=== PATIENT | male | born 1950 | race Caucasian/White ===

== ENCOUNTER 2018-04-15 09:41 | Day surgery (SDC) | payer MEDICARE ==
[~2018-04-15] VITALS: Ht 167.6 cm; Wt 57.3 kg
[2018-04-15] MEDS ORDERED: ASPI325 (10:44)
[2018-04-15] MEDS ORDERED: AMLO10 (10:44)
[2018-04-15] MEDS ORDERED: ATOR40TA (10:45)
[2018-04-15] MEDS ORDERED: ATEN25 (10:45)
[2018-04-15] MEDS ORDERED: CILO100 (10:46)
[2018-04-15] MEDS ORDERED: BREO ELLIPTA 21 EACH (10:46)
[2018-04-15] MEDS ORDERED: MELA3 (10:48)
[2018-04-15] MEDS ORDERED: ALBU90OI6 (10:48)
[2018-04-15] MEDS ORDERED: MULTI VITAMIN1 EACH (10:49)
--- NOTE | 2018-04-15 14:31 | NUR ---
04/15/[address] USED 4 CLIPS ON POLYP.
== END 2018-04-15 13:15 | disposition home or self-care (01) ==
LOC: ORSCSDS 09:41
PROVIDERS: Internal Medicine Gastroenterology
PROC: 0W3P8ZZ Control Bleeding in Gastrointestinal Tract, Via Natural or Artificial Opening Endoscopic (ICD-10-PCS; principal; 2018-04-15 11:15)
PROC: 0DBL8ZX Excision of Transverse Colon, Via Natural or Artificial Opening Endoscopic, Diagnostic (ICD-10-PCS; principal; 2018-04-15 11:15)
PROC: 0DBN8ZX Excision of Sigmoid Colon, Via Natural or Artificial Opening Endoscopic, Diagnostic (ICD-10-PCS; principal; 2018-04-15 11:15)
PROC: 0DBC8ZX Excision of Ileocecal Valve, Via Natural or Artificial Opening Endoscopic, Diagnostic (ICD-10-PCS; principal; 2018-04-15 11:15)
PROC: 0DBP8ZX Excision of Rectum, Via Natural or Artificial Opening Endoscopic, Diagnostic (ICD-10-PCS; principal; 2018-04-15 11:15)
PROC: 0DBM8ZX Excision of Descending Colon, Via Natural or Artificial Opening Endoscopic, Diagnostic (ICD-10-PCS; principal; 2018-04-15 11:15)
DX: K62.5 Hemorrhage of anus and rectum (principal); R19.7 Diarrhea, unspecified; Z86.010 Personal history of colon polyps; D12.0 Benign neoplasm of cecum; D12.2 Benign neoplasm of ascending colon; K63.5 Polyp of colon; K62.1 Rectal polyp; K62.7 Radiation proctitis; K57.30 Diverticulosis of large intestine without perforation or abscess without bleeding; K64.8 Other hemorrhoids; I10 Essential (primary) hypertension; E78.5 Hyperlipidemia, unspecified; I77.9 Disorder of arteries and arterioles, unspecified; I65.23 Occlusion and stenosis of bilateral carotid arteries; Z79.899 Other long term (current) drug therapy; Z79.82 Long term (current) use of aspirin
CPT/HCPCS: 88305; J1980; J7120

== ENCOUNTER 2020-03-10 10:09 | Day surgery (SDC) | payer MEDICARE ==
[~2020-03-10] VITALS: Ht 167.6 cm; Wt 56.8 kg
[~2020-03-10 10:09] MED LIST: ALBU90OI INH; ALBU90OI6; AMLO10; AMLO5 PO; ASPI325; ASPI325EC PO; ATEN25; ATEN25 PO; ATOR40TA; BREO ELLIPTA 21 EAC1 INH; BREO ELLIPTA 21 EACH; CILO100; CILO100 PO; Crestor40 MG PO; EZET10 PO; MELA3; MELA3 PO; MULTI VITAMIN1 EACH; SPIRIVA RESPIMAT4 G3 INH
== END 2020-03-10 12:49 | disposition home or self-care (01) ==
LOC: ORSCSDS 10:09
DX: R19.7 Diarrhea, unspecified (principal); Z86.010 Personal history of colon polyps; D12.0 Benign neoplasm of cecum; D12.2 Benign neoplasm of ascending colon; D12.3 Benign neoplasm of transverse colon; D12.4 Benign neoplasm of descending colon; K63.5 Polyp of colon; K57.30 Diverticulosis of large intestine without perforation or abscess without bleeding; K64.8 Other hemorrhoids; K64.4 Residual hemorrhoidal skin tags; I10 Essential (primary) hypertension; I25.10 Atherosclerotic heart disease of native coronary artery without angina pectoris; J44.9 Chronic obstructive pulmonary disease, unspecified; Z87.891 Personal history of nicotine dependence; Z79.82 Long term (current) use of aspirin; Z79.899 Other long term (current) drug therapy
CPT/HCPCS: 88305; J2704; J7120

== ENCOUNTER → 2020-04-14 | Outpatient (CLI) | payer MEDICARE ==
[~2020-04-14] MED LIST changes: +PRED20 PO; +Ventolin5 MG/1 ML INH
[2020-04-14 15:38] LABS: BASOPHILS ABSOLUTE AUTO 0.07 K/mm3 (0.00-0.23); BASOPHILS PERCENT AUTO 1 % (0-2); EOSINOPHILS ABSOLUTE AUTO 0.12 K/mm3 (0.00-0.68); EOSINOPHILS PERCENT AUTO 2 % (0-6); Hematocrit 52.4 % (37.0-53.0); Hemoglobin 18.5 g/dL (13.5-17.5); IMMATURE GRAN ABSOLUTE AUTO 0.05 K/mm3 (0.00-0.10); IMMATURE GRAN PERCENT AUTO 1 % (0-1); LYMPHOCYTES ABSOLUTE AUTO 2.73 K/mm3 (0.84-5.20); LYMPHOCYTES PERCENT AUTO 37 % (21-46); MONOCYTES ABSOLUTE AUTO 0.89 K/mm3 (0.16-1.47); MONOCYTES PERCENT AUTO 12 % (4-13); Mean Corpuscular HGB 32.9 pg (26.0-34.0); Mean Corpuscular HGB Conc 35.3 g/dL (31.5-36.5); Mean Corpuscular Volume 93 fL (80-100); Mean Platelet Volume 9.9 fL (9.1-12.4); NEUTROPHILS ABSOLUTE AUTO 3.44 K/mm3 (1.96-9.15); NEUTROPHILS PERCENT AUTO 47 % (41-73); Platelet Count 242 K/mm3 (150-400); RDW Coefficient Variation 13.1 % (11.7-14.2); RETICULOCYTE ABSOLUTE 0.1002 M/mm3 (0.0200-0.1100); RETICULOCYTE COUNT PERCENT 1.78 % (0.50-2.50); Red Blood Cell Count 5.63 M/mm3 (4.30-5.90)
[2020-04-14 15:57] LABS: Alanine Aminotransfer (ALT/SGP 53 U/L (12-78); Albumin, Blood 3.7 g/dL (3.4-5.0); Alk Phos 133 U/L (50-136); Anion Gap 7 mmol/L (6-16); Aspartate Aminotrans (AST/SGOT 36 U/L (12-37); Bilirubin, Total 0.5 mg/dL (0.1-1.0); Blood Urea Nitrogen 12 mg/dL (8-24); Bun/Creatinine Ratio 16.9 (12.0-20.0); CO2, Blood 30 mmol/L (21-32); Calcium, Blood 8.9 mg/dL (8.5-10.1); Chloride, Blood 100 mmol/L (98-108); Creatinine, Blood 0.71 mg/dL (0.60-1.20); Globulin, Blood 3.8 g/dL (2.2-4.0); Glomerular Filtration Rate >60 (60-); Glucose, Blood 122 mg/dL (70-99); Potassium, Blood 3.3 mmol/L (3.5-5.5); Sodium, Blood 137 mmol/L (136-145); Total Protein, Blood 7.5 g/dL (6.4-8.2)
== END | disposition home or self-care (01) ==
LOC: LAB SHORT 15:26 → LAB 15:26
PROVIDERS: Internal Medicine Hematology & Oncology
DX: D45 Polycythemia vera (principal)
CPT/HCPCS: 80053; 82668; 85025; 85045

== ENCOUNTER → 2020-04-28 | Outpatient (CLI) | payer MEDICARE | END | disposition home or self-care (01) | LOC: LAB SHORT 15:04 → LAB 15:04 | PROVIDERS: Internal Medicine Hematology & Oncology | DX: D45 Polycythemia vera (principal) | CPT/HCPCS: 81270 ==

== ENCOUNTER 2020-08-05 10:43 | Emergency (ER) | payer MEDICARE ==
[~2020-08-05] VITALS: Ht 167.6 cm; Wt 57.1 kg
[~2020-08-05 10:43] MED LIST changes: -PRED20 PO; -Ventolin5 MG/1 ML INH
[2020-08-05 11:20] LABS: BASOPHILS ABSOLUTE AUTO 0.06 K/mm3 (0.00-0.23); BASOPHILS PERCENT AUTO 1 % (0-2); EOSINOPHILS ABSOLUTE AUTO 0.12 K/mm3 (0.00-0.68); EOSINOPHILS PERCENT AUTO 2 % (0-6); Hematocrit 47.3 % (37.0-53.0); IMMATURE GRAN ABSOLUTE AUTO 0.04 K/mm3 (0.00-0.10); IMMATURE GRAN PERCENT AUTO 1 % (0-1); LYMPHOCYTES ABSOLUTE AUTO 2.28 K/mm3 (0.84-5.20); LYMPHOCYTES PERCENT AUTO 37 % (21-46); MONOCYTES ABSOLUTE AUTO 0.69 K/mm3 (0.16-1.47); MONOCYTES PERCENT AUTO 11 % (4-13); Mean Corpuscular HGB 28.5 pg (26.0-34.0); Mean Corpuscular HGB Conc 33.8 g/dL (31.5-36.5); Mean Corpuscular Volume 84 fL (80-100); Mean Platelet Volume 9.9 fL (9.1-12.4); NEUTROPHILS PERCENT AUTO 49 % (41-73); Platelet Count 272 K/mm3 (150-400); RDW Coefficient Variation 14.6 % (11.7-14.2); RDW Standard Deviation 45.1 fL (35.1-46.3); Red Blood Cell Count 5.61 M/mm3 (4.30-5.90); White Blood Cell Count 6.19 K/mm3 (4.00-11.30)
[2020-08-05 11:31] LABS: Alanine Aminotransfer (ALT/SGP 51 U/L (12-78); Albumin, Blood 3.9 g/dL (3.4-5.0); Alk Phos 140 U/L (50-136); Anion Gap 6 mmol/L (6-16); Aspartate Aminotrans (AST/SGOT 41 U/L (12-37); Bilirubin, Total 0.4 mg/dL (0.1-1.0); Blood Urea Nitrogen 12 mg/dL (8-24); CO2, Blood 29 mmol/L (21-32); Calcium, Blood 8.6 mg/dL (8.5-10.1); Chloride, Blood 101 mmol/L (98-108); Globulin, Blood 3.9 g/dL (2.2-4.0); Glomerular Filtration Rate >60 (60-); Glucose, Blood 189 mg/dL (70-99); Potassium, Blood 3.6 mmol/L (3.5-5.5); Sodium, Blood 136 mmol/L (136-145); Total Protein, Blood 7.8 g/dL (6.4-8.2)
[2020-08-05] MEDS ORDERED: PRED20 PO (13:15)
[2020-08-05] MEDS ORDERED: Ventolin5 MG/1 ML INH (13:16)
== END 2020-08-05 13:53 | disposition home or self-care (01) ==
LOC: ER 10:43
PROVIDERS: Emergency Medicine
DX: J44.1 Chronic obstructive pulmonary disease with (acute) exacerbation (principal); K65.9 Peritonitis, unspecified; I10 Essential (primary) hypertension; I25.2 Old myocardial infarction; Z88.8 Allergy status to other drugs, medicaments and biological substances; Z88.5 Allergy status to narcotic agent; Z79.899 Other long term (current) drug therapy
CPT/HCPCS: 36415; 71046; 80053; 85025; 93005; 93010; 94640; 99285-25; J7512

== ENCOUNTER 2023-02-01 14:24 | Observation (INO) | payer MEDICARE ==
[~2023-02-01] VITALS: Ht 167.6 cm; Wt 57.6 kg
[~2023-02-01 14:24] MED LIST changes: +PRED20 PO; +Ventolin5 MG/1 ML INH
[2023-02-01] MEDS ORDERED: ATEN50 PO (14:56)
[2023-02-01 15:06] LABS: BASOPHILS ABSOLUTE AUTO 0.05 K/mm3 (0.00-0.23); BASOPHILS PERCENT AUTO 1 % (0-2); EOSINOPHILS ABSOLUTE AUTO 0.16 K/mm3 (0.00-0.68); EOSINOPHILS PERCENT AUTO 2 % (0-6); Hematocrit 40.8 % (37.0-53.0); Hemoglobin 14.4 g/dL (13.5-17.5); IMMATURE GRAN ABSOLUTE AUTO 0.04 K/mm3 (0.00-0.10); IMMATURE GRAN PERCENT AUTO 1 % (0-1); LYMPHOCYTES ABSOLUTE AUTO 3.25 K/mm3 (0.84-5.20); LYMPHOCYTES PERCENT AUTO 42 % (21-46); MONOCYTES ABSOLUTE AUTO 0.85 K/mm3 (0.16-1.47); MONOCYTES PERCENT AUTO 11 % (4-13); Mean Corpuscular HGB 32.2 pg (26.0-34.0); Mean Corpuscular HGB Conc 35.3 g/dL (31.5-36.5); Mean Corpuscular Volume 91 fL (80-100); Mean Platelet Volume 10.3 fL (9.1-12.4); NEUTROPHILS ABSOLUTE AUTO 3.42 K/mm3 (1.96-9.15); NEUTROPHILS PERCENT AUTO 44 % (41-73); Platelet Count 216 K/mm3 (150-400); RDW Coefficient Variation 12.6 % (11.7-14.2); RDW Standard Deviation 41.7 fL (35.1-46.3); Red Blood Cell Count 4.47 M/mm3 (4.30-5.90); White Blood Cell Count 7.77 K/mm3 (4.00-11.30)
[2023-02-01 15:21] LABS: Albumin, Blood 3.6 g/dL (3.4-5.0); Albumin/Globulin Ratio 1.1 (0.8-1.8); Bilirubin, Total 0.5 mg/dL (0.1-1.0); Bun/Creatinine Ratio 18.2 (12.0-20.0); Calcium, Blood 8.3 mg/dL (8.5-10.1); Creatinine, Blood 0.82 mg/dL (0.60-1.20); Globulin, Blood 3.4 g/dL (2.2-4.0); Potassium, Blood 3.7 mmol/L (3.5-5.5)
[2023-02-01 16:03] LABS: Magnesium, Blood 2.2 mg/dL (1.6-2.4); Thyroid Stimulating Hormone 0.519 uIU/mL (0.360-4.800)
[2023-02-01 16:44] LABS: Source, Urine Clean Catch
[2023-02-01 17:31] LABS: Appearance, Urine Clear (Clear); Bilirubin, Urine Neg (Neg); Blood, Urine Neg (Neg); Color, Urine Yellow (P-Yellow); Glucose Qualitative, Urine Neg (Neg); Ketones, Urine Neg (Neg); Leukocyte Esterase, Urine Neg (Neg); Nitrite, Urine Neg (Neg); Protein, Urine Neg (Neg); Urobilinogen, Urine NORM (Normal)
[2023-02-01 18:33] LABS: Influenza A, PCR NEGATIVE (NEGATIVE); Influenza B, PCR NEGATIVE (NEGATIVE); Resp Syncytial Virus, PCR NEGATIVE (NEGATIVE); SARS-Cov-2 (COVID-19) PCR, MMC NEGATIVE (NEGATIVE)
[2023-02-01 22:49] VITALS: BP 190/85
[2023-02-01 23:55] VITALS: BP 174/97
[2023-02-02] VITALS (9 sets, daily range): BP systolic 98–197; BP diastolic 66–101
[2023-02-02 05:16] LABS: Hematocrit 45.2 % (37.0-53.0); Hemoglobin 16.1 g/dL (13.5-17.5); Mean Corpuscular HGB 32.1 pg (26.0-34.0); Mean Corpuscular HGB Conc 35.6 g/dL (31.5-36.5); Mean Corpuscular Volume 90 fL (80-100); Mean Platelet Volume 10.8 fL (9.1-12.4); Platelet Count 233 K/mm3 (150-400); RDW Coefficient Variation 12.6 % (11.7-14.2); RDW Standard Deviation 41.2 fL (35.1-46.3); Red Blood Cell Count 5.01 M/mm3 (4.30-5.90); White Blood Cell Count 9.42 K/mm3 (4.00-11.30)
[2023-02-02 05:42] LABS: Bun/Creatinine Ratio 14.1 (12.0-20.0); Calcium, Blood 8.4 mg/dL (8.5-10.1); Creatinine, Blood 0.64 mg/dL (0.60-1.20); Potassium, Blood 3.6 mmol/L (3.5-5.5)
--- NOTE | 2023-02-02 06:00 | NUR ---
SHIFT SUMMARY: ER ADMIT. NORMALLY INDEPENDENT. GLF FALL AT HOME ON CARPET. SMALL SKIN TEAR TO LEFT ELBOW. PIC TAKEN AND IN CHART. MEPILEX TO SKIN TEAR. PT HAD BECAME DIZZY A/O. COOPERATIVE WITH CARE. ON 4L. 3-4L BASELINE. SINUS RHYTHM ON TELE AT 86. IV LABATELOL 10 MG GIVEN FOR SBP OVER 190. NOW SBP 178. PT STATES HE'S FEELING SO MUCH BETTER THAN WHEN HE FIRST CAME IN. USED URINAL AT BEDSIDE. NO ACUTE CHANGES. WILL CONTINUE TO PROVIDE CARE UNTIL SHIFT REPORT.
[2023-02-03] VITALS (11 sets, daily range): BP systolic 113–199; BP diastolic 72–101
[2023-02-03 04:12] LABS: Base Excess Venous 2.1 mmol/L; Bicarbonate Venous 25.7 mmol/L (24.0-30.0); PCO2 Venous 39.9 mmHg (38-42); pH Blood Venous 7.43 (7.34-7.37)
[2023-02-03 04:38] LABS: BASOPHILS ABSOLUTE AUTO 0.06 K/mm3 (0.00-0.23); BASOPHILS PERCENT AUTO 1 % (0-2); EOSINOPHILS PERCENT AUTO 1 % (0-6); Hematocrit 45.7 % (37.0-53.0); IMMATURE GRAN ABSOLUTE AUTO 0.06 K/mm3 (0.00-0.10); IMMATURE GRAN PERCENT AUTO 1 % (0-1); LYMPHOCYTES ABSOLUTE AUTO 2.16 K/mm3 (0.84-5.20); LYMPHOCYTES PERCENT AUTO 26 % (21-46); MONOCYTES ABSOLUTE AUTO 1.02 K/mm3 (0.16-1.47); MONOCYTES PERCENT AUTO 13 % (4-13); Mean Corpuscular HGB 31.9 pg (26.0-34.0); Mean Corpuscular Volume 91 fL (80-100); Mean Platelet Volume 10.8 fL (9.1-12.4); NEUTROPHILS ABSOLUTE AUTO 4.79 K/mm3 (1.96-9.15); NEUTROPHILS PERCENT AUTO 59 % (41-73); Platelet Count 226 K/mm3 (150-400); RDW Coefficient Variation 12.8 % (11.7-14.2); RDW Standard Deviation 42.6 fL (35.1-46.3); Red Blood Cell Count 5.01 M/mm3 (4.30-5.90); White Blood Cell Count 8.19 K/mm3 (4.00-11.30)
[2023-02-03 04:59] LABS: Albumin, Blood 3.4 g/dL (3.4-5.0); Bilirubin, Total 0.7 mg/dL (0.1-1.0); Bun/Creatinine Ratio 15.8 (12.0-20.0); Calcium, Blood 8.4 mg/dL (8.5-10.1); Creatinine, Blood 0.7 mg/dL (0.60-1.20); Globulin, Blood 3.4 g/dL (2.2-4.0); Potassium, Blood 3.6 mmol/L (3.5-5.5); Total Protein, Blood 6.8 g/dL (6.4-8.2)
--- NOTE | 2023-02-03 06:13 | NUR ---
SHIFT SUMMARY PT PLEASANTLY CONFUSED. PT STS THAT HE IS GOING HOME TODAY NO MATTER WHAT. PT FORGETS HE IS IN THE HOSPITAL AT TIMES, ESPECIALLY AFTER HE HAS JUST WOKEN UP. PT HAS PULLED HIS CLOTHES AND TELE STICKERS OFF MANY TIMES THIS SHIFT. PT HAS CALL LIGHT WITHIN HIS REACH AND STS THAT HE KNOWS HOW TO USE IT. BED ALARM IS SET.
[2023-02-03 16:50] LABS: Source, Urine Clean Catch
--- NOTE | 2023-02-03 16:54 | NUR ---
PATIENT WITH INCREASING HALLUCINATIONS AND MIDDAY THINKING HE IS AT HOME AND NOT THE HOSPITAL, HE REORIENTS WELL BUT IS SEEING SNOW OUTSIDE, HIS CANE OUTSIDE THE [facility] ETC. DR YOUNG MADE AWARE. PATIEN ALSO BEGAN C/O BURNING WITH URINATION. CTA HEAD AND NECK ORDERED FOR ANGIOGRAM AND UA WITH REFLEX TO CULTURE COLLECTED. BP RAN HIGHER THIS AFTERNOON AND HYDRALAZINE GIVEN, WILL FOLLOW UP IN 15 MINUTES ON BLOOD PRESSURE. PATIENT REPORTS HE HAD SOME NAUSEA AND A LITTLE VOMIT DOWNSTAIRS DURING CTA BUT AFTER ZOFRAN PULLED FOR PATIENT, HE DECLINES IT STATING THE NAUSEA IS SUBSIDING QUICKLY. HE IS CURRENTLY ON 5LPM NC AT REST AND SATTING 92% OR HIGHER WHEN HIS OXYMETER IS READING CORRECTLY. BED IN LOW POSITION, BED ALARM ON PATIENT FORGETS LIMITATIONS AND ORIENTATION. CALL LIGHT IN REACH. WILL CONTINUE TO MONITOR.
[2023-02-03 17:04] LABS: Appearance, Urine Clear (Clear); Bilirubin, Urine Neg (Neg); Blood, Urine Neg (Neg); Glucose Qualitative, Urine Neg (Neg); Ketones, Urine 2+ (Neg); Leukocyte Esterase, Urine Neg (Neg); Nitrite, Urine Neg (Neg); Protein, Urine Neg (Neg); Urobilinogen, Urine NORM (Normal)
[2023-02-03 17:07] LABS: Color, Urine Pale Yellow (P-Yellow)
--- NOTE | 2023-02-03 19:03 | NUR ---
TOOK OVER ICE [facility]ARE 1630 UNTIL SHIFT CHANGE.
--- NOTE | 2023-02-04 02:45 | NUR ---
CALLED HOSPITALIST PATIENT IS AGITATED. HE IS FREQUENTLY REMOVING LINES AND TUBING, INCLUDING HIS OXYGEN. HE HAS REMOVED HIS CLOTHING AND IS HALLUCINATING. NEW MEDICATION ORDERS IN EMAR
--- NOTE | 2023-02-04 04:20 | NUR ---
SHIFT SUMMARY ADMITTED FOR [facility]. FULL CODE. CT ORDERED TODAY FOR CHEST, ABDOMEN, AND PELVIS. NEW LAB ORDERED. HE IS A&O X2, HALLUCINATES. HE PULLS AT LINES AND TUBES, OF WHICH THERE ARE MANY. BECAME AGITATED THIS SHIFT, SEE PREVIOUS NOTE. PRN ANXIETY MEDICATION GIVEN TO GOOD EFFECT. TELEMETRY: NSR @ 96 BPM. CAROTIDS FOUND TO HAVE OCCLUSIONS TO VARYING DEGREES, POSSIBLE ANGIOGRAM TOMORROW. CONTINUOUS PULSE OX IN PLACE ON EARLOBE. IV FLUIDS INFUSING ORDERED. HE IS ON A REGULAR DIET. 1-2 ASSIST TO BSC. JACKI HOSE IN PLACE.
[2023-02-04 05:02] LABS: BASOPHILS ABSOLUTE AUTO 0.05 K/mm3 (0.00-0.23); BASOPHILS PERCENT AUTO 1 % (0-2); EOSINOPHILS ABSOLUTE AUTO 0.06 K/mm3 (0.00-0.68); EOSINOPHILS PERCENT AUTO 1 % (0-6); Hematocrit 46.6 % (37.0-53.0); Hemoglobin 16.4 g/dL (13.5-17.5); IMMATURE GRAN ABSOLUTE AUTO 0.05 K/mm3 (0.00-0.10); IMMATURE GRAN PERCENT AUTO 1 % (0-1); LYMPHOCYTES ABSOLUTE AUTO 2.11 K/mm3 (0.84-5.20); LYMPHOCYTES PERCENT AUTO 24 % (21-46); MONOCYTES ABSOLUTE AUTO 0.98 K/mm3 (0.16-1.47); MONOCYTES PERCENT AUTO 11 % (4-13); Mean Corpuscular HGB 32.5 pg (26.0-34.0); Mean Corpuscular HGB Conc 35.2 g/dL (31.5-36.5); Mean Corpuscular Volume 92 fL (80-100); Mean Platelet Volume 10.7 fL (9.1-12.4); NEUTROPHILS ABSOLUTE AUTO 5.45 K/mm3 (1.96-9.15); NEUTROPHILS PERCENT AUTO 63 % (41-73); Platelet Count 205 K/mm3 (150-400); RDW Coefficient Variation 12.8 % (11.7-14.2); RDW Standard Deviation 42.9 fL (35.1-46.3); Red Blood Cell Count 5.05 M/mm3 (4.30-5.90)
[2023-02-04 05:31] VITALS: BP 188/83
[2023-02-04 05:43] LABS: Alanine Aminotransfer (ALT/SGP 32 U/L (12-78); Albumin, Blood 3.4 g/dL (3.4-5.0); Albumin/Globulin Ratio 0.9 (0.8-1.8); Alk Phos 99 U/L (50-136); Anion Gap 11 mmol/L (6-16); Aspartate Aminotrans (AST/SGOT 39 U/L (12-37); Bilirubin, Total 0.7 mg/dL (0.1-1.0); Blood Urea Nitrogen 11 mg/dL (8-24); Bun/Creatinine Ratio 19.4 (12.0-20.0); CO2, Blood 21 mmol/L (21-32); Chloride, Blood 99 mmol/L (98-108); Creatinine, Blood 0.57 mg/dL (0.60-1.20); Globulin, Blood 3.8 g/dL (2.2-4.0); Glomerular Filtration Rate 104 (60-); Glucose, Blood 80 mg/dL (70-99); Potassium, Blood 3.5 mmol/L (3.5-5.5); Sodium, Blood 131 mmol/L (136-145); Total Protein, Blood 7.2 g/dL (6.4-8.2)
[2023-02-04 05:45] VITALS: BP 133/99
[2023-02-04 07:22] VITALS: BP 162/91
[2023-02-04] MEDS ORDERED: MECL25 PO (08:41)
[2023-02-04] MEDS ORDERED: CARV6.25 PO (10:21)
--- NOTE | 2023-02-04 14:20 | NUR ---
DISCHARGE NOTE: DISCHARGE DISCUSSED WITH PATIENT AND LIFE PARTNER SHAHZAD AND BEDSIDE. PATIENT'S BELONGINGS WE COLLECTED, IV AND TELEMETRY D/C'D. PT HOOKED UP TO PERSONAL OXYGEN AND REMOVED FROM HOSPITAL OXYGEN. TRANSPORTED TO WHEELCHAIR AND TAKEN TO ADMITTING ENTERANCE BY STAFF TO PERSONAL VEHICLE. PATIENT WAS ABLE TO GET INTO VEHICLE WITH THE ASSISTANCE OF HIS PARTNER SHAHZAD. NO SIGNS OR SYMPTOMS OF DISTRESS DURING DISCHARGE.
== END 2023-02-04 13:50 | disposition home health service (06) ==
LOC: ER 14:24 → MEDS 14:25 → ENPENDDIS 02-04 10:24 → MEDS 02-04 13:50
PROVIDERS: Emergency Medicine; Internal Medicine; Nurse Practitioner Acute Care; ADMIT Internal Medicine
DX: R27.0 Ataxia, unspecified (principal); J96.21 Acute and chronic respiratory failure with hypoxia; I42.1 Obstructive hypertrophic cardiomyopathy; I65.21 Occlusion and stenosis of right carotid artery; I10 Essential (primary) hypertension; E78.5 Hyperlipidemia, unspecified; J44.9 Chronic obstructive pulmonary disease, unspecified; I25.10 Atherosclerotic heart disease of native coronary artery without angina pectoris; I73.9 Peripheral vascular disease, unspecified; G47.33 Obstructive sleep apnea (adult) (pediatric); Z88.0 Allergy status to penicillin; Z88.5 Allergy status to narcotic agent; Z88.6 Allergy status to analgesic agent; Z88.8 Allergy status to other drugs, medicaments and biological substances; Z79.82 Long term (current) use of aspirin; Z79.899 Other long term (current) drug therapy
CPT/HCPCS: 0241U; 36415; 70450; 70496; 70498; 70551; 71045; 71260; 74177; 80048; 80053; 81003; 82803; 83735; 84153; 84443; 84484; 85025; 85027; 94640; 94660; 94664; 94762; 96361; 96372; 96374; 96375; 96376; 97161; 97530; 99285-25; A9270; G0378; J0360; J1650; J7030; Q9967